=== PATIENT | female | born 1935 | race Caucasian/White ===

== ENCOUNTER 2016-10-10 10:46 | Emergency (ER) | payer MEDICARE, BC ==
[2016-10-10] MEDS ORDERED: NORVASC5 M2 PO (11:05)
[2016-10-10] MEDS ORDERED: KLONOPIN0.5 M1 PO (11:05)
[2016-10-10] MEDS ORDERED: LOPRESSOR100 M1 PO (11:05)
[2016-10-10] MEDS ORDERED: MOBIC7.5 M2 PO (11:06)
[2016-10-10] MEDS ORDERED: CELEXA10 M1 PO (11:06)
[2016-10-10] MEDS ORDERED: MIRAPEX0.125 M1 PO (11:06)
[2016-10-10] MEDS ORDERED: ROSUVASTATIN CA10 MG PO (11:07)
[2016-10-10] MEDS ORDERED: TYLENOL325 M2 PO (11:16)
[2016-10-10] MEDS ORDERED: ASPIRIN81 M1 PO (11:18)
[2016-10-10] MEDS ORDERED: DAILY VITE1 EACH PO (11:19)
[2016-10-10] MEDS ORDERED: KEFLEX500 M4 PO (12:39)
== END 2016-10-10 13:30 ==
LOC: EDMED 10:46
DX: M70.21 Olecranon bursitis, right elbow (principal); L03.113 Cellulitis of right upper limb; Z23 Encounter for immunization; Z88.2 Allergy status to sulfonamides

== ENCOUNTER 2017-01-20 22:57 | Emergency (ER) | payer MEDICARE, BC ==
[~2017-01-20 22:57] MED LIST: ASPIRIN81 M1 PO; CELEXA10 M1 PO; DAILY VITE1 EACH PO; KEFLEX500 M4 PO; KLONOPIN0.5 M1 PO; LOPRESSOR100 M1 PO; MIRAPEX0.125 M1 PO; MOBIC7.5 M2 PO; NORVASC5 M2 PO; ROSUVASTATIN CA10 MG PO; TYLENOL325 M2 PO
[2017-01-20 23:44] LABS: BASO % 0.5 % (0-2); EOS % 2.1 % (0-7); EOSINOPHIL ABSOLUTE COUNT 0.1 tho/cmm (0.0-0.7); HCT-HEMATOCRIT 37.2 % (34.0-49.0); HGB-HEMOGLOBIN 12.5 gm/dl (12.0-15.5); IMMATURE GRANULOCYTES ABSOLUTE 0.03 tho/cmm (0-0.03); IMMATURE GRANULOCYTES PERCENT 0.5 % (0-0.3); LYMPH % 31.7 % (20-45); LYMPH ABSOLUTE COUNT 2.1 tho/cmm (0.8-4.5); MCH (MEAN CORPUSCULAR HGB) 29.9 pg (28.0-32.0); MCHC MEAN CORPUSCULAR HGB CONC 33.6 % (32.0-36.0); MEAN PLATELET VOLUME 9.6 cmc (9.4-12.4); MONO % 11.5 % (0-12); MONOCYTE ABSOLUTE COUNT 0.8 tho/cmm (0.0-1.2); NEUTROPHIL ABSOLUTE COUNT 3.5 tho/cmm (1.6-8.0); NEUTROPHIL-AUTOMATED 3.5 tho/cmm (1.6-8.0); NEUTROPHILS % 53.7 % (40-80); PLATELET COUNT 215 tho/cmm (150-450); RED BLOOD COUNT 4.18 mil/cmm (4.00-5.20); RED CELL DISTRIBUTION WIDTH 13.1 % (12.4-16.4); WHITE BLOOD COUNT 6.6 tho/cmm (4.0-10.0)
[2017-01-20 23:48] LABS: URINE BILIRUBIN NEGATIVE (NEG); URINE BLOOD NEGATIVE (NEG); URINE GLUCOSE (UA) NEGATIVE (NEG); URINE KETONE NEGATIVE (NEG); URINE LEUKOCYTE ESTERASE POSITIVE (NEG); URINE NITRITE NEGATIVE (NEG); URINE PH 6.5 (5.0-8.0); URINE PROTEIN NEGATIVE (NEG)
[2017-01-20 23:50] LABS: INR 1.1 INR (0.9-1.1); PROTHROMBIN TIME 12.8 SECONDS (9.0-13.6)
[2017-01-20 23:53] LABS: URINE APPEARANCE HAZY; URINE COLOR YELLOW
[2017-01-20 23:55] LABS: URINE BACTERIA 1+; URINE RBC 0 /[HPF] (0-5)
[2017-01-21] LABS: ALBUMIN 3.7 g/dl (3.5-5.0); ALKALINE PHOSPHATASE 62 U/L (33-138); ALT/SGPT 20 U/L (12-78); BILIRUBIN,TOTAL 0.5 mg/dl (0-1.5); BLOOD UREA NITROGEN 27 mg/dl (6-24); CALCIUM 9.2 mg/dl (8.5-10.5); CARBON DIOXIDE-VENOUS 24 mmol/L (22-32); CHLORIDE 105 mmol/l (96-110); GLUCOSE 105 mg/dL (70-110); SODIUM 137 mmol/L (135-145); eGFR VALUE FOR BLACK 40 mL/Min
[2017-01-21 00:05] LABS: ANION GAP 12 mmol/L (0-20); AST/SGOT 25 U/L (10-40); POTASSIUM 4.1 mmol/L (3.7-5.1)
[2017-01-21] MEDS ORDERED: GOLYTELY S4000 ML/EA PO (01:00)
== END 2017-01-21 01:10 ==
LOC: EDMED → EDBD 22:57 → EDMED 01-21 01:10
PROVIDERS: Emergency Medicine
DX: S63.602A Unspecified sprain of left thumb, initial encounter (principal); S00.03XA Contusion of scalp, initial encounter; I10 Essential (primary) hypertension; E78.5 Hyperlipidemia, unspecified; K59.00 Constipation, unspecified; Z88.2 Allergy status to sulfonamides; Z79.82 Long term (current) use of aspirin; Z79.899 Other long term (current) drug therapy; W01.0XXA Fall on same level from slipping, tripping and stumbling without subsequent striking against object, initial encounter; Y92.012 Bathroom of single-family (private) house as the place of occurrence of the external cause
CPT/HCPCS: J2405